=== PATIENT | male | born 1945 | race Caucasian/White ===

== ENCOUNTER 2020-11-14 01:12 | Outpatient (CLI) | payer MEDICARE, OTHER, SELFPAY ==
[2020-11-14 10:28] LABS: ALT 25 U/L (16-63); AST 20 U/L (15-37); Albumin 3.6 g/dL (3.4-5.0); Alkaline Phosphatase 76 U/L (46-116); Anion Gap 7.1 mmol/L (3-11); BUN 17 mg/dL (7-18); Bilirubin, Total 0.4 mg/dL (0.2-1.0); CO2 30.9 mmol/L (21.0-32.0); CREATININE 1.2 mg/dL (0.70-1.30); Calcium 8.5 mg/dL (8.5-10.1); Chloride 101 mmol/L (98-107); Estimated GFR 59.18 (mL/min/1.73m2); Glucose 249 mg/dL (74-106); Potassium 4.6 mmol/L (3.5-5.1); Sodium 139 mmol/L (136-145); Total Protein 7.2 g/dL (6.4-8.2)
--- NOTE | 2020-11-14 11:00 | DI.MRI_ITS ---
EXAM: MR BRAIN WO/W CLINICAL HISTORY: RUL LUNG CA,C34.11,STAGING EXAM TECHNIQUE: Multiplanar multisequence MRI of the brain was performed. Both noninfused and contrast i nfused sequences were performed. IV Contrast injected was 20 cc Dotarem. COMPARISON: No exams were available for comparison FINDINGS: CEREBRAL PARENCHYMA: No evidence of intracranial hemorrhage, mass effect nor shift of midline structu re. No extraaxial fluid collections. Ventricles are not enlarged nor shifted. There is no significant focal signal abnormality in the cerebellar hemispheres. Increased signal in both sides of the awilda is noted as well as multiple bilateral white matter signal foci in the Marisol and supraventricular white matter consistent with chronic small vessel disease. Th santana findings are nonenhancing and are not associated with surrounding edema and therefore doubtful fo r metastatic disease. There is slight asymmetry in the signal of the medial right temporal lobe amyg dala region evident on FLAIR sequence and mild enhancement at this level noted on the axial postcontr ast T1 weighted images. However, there is no evidence of ring enhancing lesions in this region on th e coronal images. No abnormal signal evident at this level on diffusion imaging There are no ring enhancing lesions in the brain. There is no abnormal meningeal enhancement. PITUITARY GLAND: No mass nor parasellar abnormality. No obvious abnormality in the cavernous sinuses. FLOW VOIDS: The expected flow void are noted. No evidence of obvious aneurysm nor obvious vascular ma lformation. PARANASAL SINUSES: There is post inflammatory retention cysts in the lateral wall of the left maxilla ry sinus measures 10 x 9 millimeters, not associated with a fluid level. Remainder of the paranasal sinuses are clear. ORBITS: No obvious abnormal findings. IMPRESSION: 1. There are multiple foci of white matter signal abnormality which are not associated with enhanceme nt nor surrounding edema noted therefore unlikely to represent metastatic disease. Probably chronic ischemic sequelae. 2. Slightly suspicious appearance of the medial right temporal lobe as described above. However, thi s is not supported in all 3 planes and may be related to slightly asymmetric enhancement of the plexu s within the temporal horn of the right lateral ventricle. Recommend repeat study in 3 months. DATA REPOSITORY:
[2020-11-14] MEDS: Gadoterate meglumine 20 ML VIAL IVP (11:03)
== END 2020-11-14 01:32 ==
PROVIDERS: Internal Medicine Medical Oncology; PCP Family Medicine; Visit Provider Radiology Radiation Oncology
DX: C34.11 Malignant neoplasm of upper lobe, right bronchus or lung (principal)
CPT/HCPCS: 70553; 80053

== ENCOUNTER 2020-11-21 09:23 | Outpatient (CLI) | payer MEDICARE, OTHER, SELFPAY ==
[2020-11-21 09:48] LABS: ALT 24 U/L (16-63); AST 22 U/L (15-37); Albumin 3.7 g/dL (3.4-5.0); Alkaline Phosphatase 76 U/L (46-116); Anion Gap 4.7 mmol/L (3-11); BUN 18 mg/dL (7-18); Bilirubin, Total 0.5 mg/dL (0.2-1.0); CO2 32.3 mmol/L (21.0-32.0); CREATININE 1.3 mg/dL (0.70-1.30); Chloride 101 mmol/L (98-107); Estimated GFR 53.96 (mL/min/1.73m2); Glucose 192 mg/dL (74-106); Potassium 5.5 mmol/L (3.5-5.1); Sodium 138 mmol/L (136-145); Total Protein 7.4 g/dL (6.4-8.2)
[2020-11-21 10:26] LABS: Abs Immature Grans 0.01 10^3/uL (0.0-0.06); Absolute Basophil Count 0.06 10^3/uL (0.0-0.2); Absolute Eosinophil Count 0.27 10^3/uL (0.0-0.7); Absolute Lymphocyte Count 0.94 10^3/uL (1.2-3.4); Absolute Neutrophil Count 4.99 10^3/uL (1.2-6.7); Basophils % 0.9; Eosinophils % 3.9; HCT 43.7 % (40.0-50.0); HGB 14.3 g/dL (13.5-17.5); Immature Grans % 0.1; Lymphocytes % 13.5; MCH 29.7 pg (27.0-33.0); MCHC 32.7 % (32.0-36.0); MCV 90.7 fL (80-95); Neutrophils % 71.6; Nucleated RBC 0 %; Platelet Count 210 10^3/uL (130-400); RBC 4.82 10^6/uL (4.36-5.78); RDW 12.5 % (11.8-14.1); RDW-SD 41.1 fL; WBC 6.97 10^3/uL (4.4-10.8)
[2020-11-21 10:39] LABS: Magnesium 1.9 mg/dL (1.8-2.4)
== END 2020-11-21 09:24 | disposition home or self-care (01) ==
LOC: LBO 09:24
PROVIDERS: PCP Family Medicine; Visit Provider Internal Medicine Medical Oncology
DX: C34.11 Malignant neoplasm of upper lobe, right bronchus or lung (principal)
CPT/HCPCS: 36415; 80053; 83735; 85025

== ENCOUNTER 2020-11-28 04:22 | Outpatient (CLI) | payer MEDICARE, OTHER, SELFPAY ==
[2020-11-28 09:04] LABS: Abs Immature Grans 0.05 10^3/uL (0.0-0.06); Absolute Basophil Count 0.04 10^3/uL (0.0-0.2); Absolute Eosinophil Count 0.18 10^3/uL (0.0-0.7); Absolute Lymphocyte Count 0.68 10^3/uL (1.2-3.4); Absolute Monocyte Count 0.52 10^3/uL (0.1-0.8); Absolute Neutrophil Count 5.16 10^3/uL (1.2-6.7); Basophils % 0.6; Eosinophils % 2.7; HCT 39.6 % (40.0-50.0); HGB 13.3 g/dL (13.5-17.5); Immature Grans % 0.8; Lymphocytes % 10.3; MCH 29.3 pg (27.0-33.0); MCHC 33.6 % (32.0-36.0); MCV 87.2 fL (80-95); MPV 9.7 fL (8.0-11.0); Monocytes % 7.8; Neutrophils % 77.8; Nucleated RBC 0 %; Platelet Count 199 10^3/uL (130-400); RBC 4.54 10^6/uL (4.36-5.78); RDW 12.3 % (11.8-14.1); RDW-SD 39.2 fL; WBC 6.63 10^3/uL (4.4-10.8)
[2020-11-28 09:19] LABS: ALT 19 U/L (16-63); AST 16 U/L (15-37); Albumin 3.4 g/dL (3.4-5.0); Alkaline Phosphatase 69 U/L (46-116); Anion Gap 7.6 mmol/L (3-11); BUN 24 mg/dL (7-18); Bilirubin, Total 0.6 mg/dL (0.2-1.0); CO2 28.4 mmol/L (21.0-32.0); CREATININE 1.5 mg/dL (0.70-1.30); Chloride 98 mmol/L (98-107); Estimated GFR 45.75 (mL/min/1.73m2); Glucose 272 mg/dL (74-106); Magnesium 1.5 mg/dL (1.8-2.4); Potassium 5.1 mmol/L (3.5-5.1); Sodium 134 mmol/L (136-145); Total Protein 7.4 g/dL (6.4-8.2)
== END 2020-11-28 04:23 | disposition home or self-care (01) ==
LOC: LBO 04:22
PROVIDERS: PCP Family Medicine; Visit Provider Internal Medicine Medical Oncology
DX: C34.11 Malignant neoplasm of upper lobe, right bronchus or lung (principal)
CPT/HCPCS: 36415; 80053; 83735; 85025

== ENCOUNTER 2020-12-05 04:32 | Outpatient (CLI) | payer MEDICARE, OTHER, SELFPAY ==
[2020-12-05 09:02] LABS: Abs Immature Grans 0.02 10^3/uL (0.0-0.06); Absolute Basophil Count 0.03 10^3/uL (0.0-0.2); Absolute Eosinophil Count 0.08 10^3/uL (0.0-0.7); Absolute Lymphocyte Count 0.33 10^3/uL (1.2-3.4); Absolute Monocyte Count 0.41 10^3/uL (0.1-0.8); Absolute Neutrophil Count 2.66 10^3/uL (1.2-6.7); Basophils % 0.8; Eosinophils % 2.3; HCT 38.1 % (40.0-50.0); HGB 12.6 g/dL (13.5-17.5); Immature Grans % 0.6; Lymphocytes % 9.3; MCH 29.4 pg (27.0-33.0); MCHC 33.1 % (32.0-36.0); MPV 9.3 fL (8.0-11.0); Monocytes % 11.6; Neutrophils % 75.4; Nucleated RBC 0 %; Platelet Count 217 10^3/uL (130-400); RBC 4.28 10^6/uL (4.36-5.78); RDW 12.2 % (11.8-14.1); RDW-SD 38.9 fL; WBC 3.53 10^3/uL (4.4-10.8)
[2020-12-05 09:17] LABS: ALT 20 U/L (16-63); AST 14 U/L (15-37); Albumin 3.1 g/dL (3.4-5.0); Alkaline Phosphatase 67 U/L (46-116); Anion Gap 4.8 mmol/L (3-11); BUN 22 mg/dL (7-18); Bilirubin, Total 0.3 mg/dL (0.2-1.0); CO2 29.2 mmol/L (21.0-32.0); CREATININE 1.4 mg/dL (0.70-1.30); Calcium 8.7 mg/dL (8.5-10.1); Chloride 103 mmol/L (98-107); Estimated GFR 49.54 (mL/min/1.73m2); Glucose 146 mg/dL (74-106); Magnesium 1.5 mg/dL (1.8-2.4); Potassium 4.8 mmol/L (3.5-5.1); Sodium 137 mmol/L (136-145)
== END 2020-12-05 04:33 | disposition home or self-care (01) ==
LOC: LBO 04:32
PROVIDERS: PCP Family Medicine; Visit Provider Internal Medicine Medical Oncology
DX: C34.11 Malignant neoplasm of upper lobe, right bronchus or lung (principal)
CPT/HCPCS: 36415; 80053; 83735; 85025

== ENCOUNTER 2020-12-12 04:07 | Outpatient (CLI) | payer MEDICARE, OTHER, SELFPAY ==
[2020-12-12 09:12] LABS: Abs Immature Grans 0.04 10^3/uL (0.0-0.06); Absolute Basophil Count 0.04 10^3/uL (0.0-0.2); Absolute Eosinophil Count 0.05 10^3/uL (0.0-0.7); Absolute Lymphocyte Count 0.28 10^3/uL (1.2-3.4); Absolute Neutrophil Count 3.27 10^3/uL (1.2-6.7); Eosinophils % 1.3; HCT 37.5 % (40.0-50.0); HGB 12.6 g/dL (13.5-17.5); MCH 29.4 pg (27.0-33.0); MCHC 33.6 % (32.0-36.0); MCV 87.6 fL (80-95); MPV 8.8 fL (8.0-11.0); Monocytes % 7.5; Neutrophils % 82.2; Nucleated RBC 0 %; Platelet Count 203 10^3/uL (130-400); RBC 4.28 10^6/uL (4.36-5.78); RDW 12.4 % (11.8-14.1); RDW-SD 39.5 fL; WBC 3.98 10^3/uL (4.4-10.8)
[2020-12-12 09:26] LABS: ALT 21 U/L (16-63); AST 16 U/L (15-37); Albumin 3.3 g/dL (3.4-5.0); Alkaline Phosphatase 69 U/L (46-116); BUN 26 mg/dL (7-18); Bilirubin, Total 0.3 mg/dL (0.2-1.0); CREATININE 1.3 mg/dL (0.70-1.30); Calcium 9.1 mg/dL (8.5-10.1); Chloride 103 mmol/L (98-107); Estimated GFR 53.96 (mL/min/1.73m2); Glucose 132 mg/dL (74-106); Magnesium 1.5 mg/dL (1.8-2.4); Potassium 4.8 mmol/L (3.5-5.1); Sodium 140 mmol/L (136-145); Total Protein 7.1 g/dL (6.4-8.2)
== END 2020-12-12 04:08 | disposition home or self-care (01) ==
LOC: LBO 04:07
PROVIDERS: PCP Family Medicine; Visit Provider Internal Medicine Medical Oncology
DX: C34.11 Malignant neoplasm of upper lobe, right bronchus or lung (principal)
CPT/HCPCS: 36415; 80053; 83735; 85025

== ENCOUNTER 2020-12-19 03:20 | Outpatient (CLI) | payer MEDICARE, OTHER, SELFPAY ==
[2020-12-19 09:47] LABS: Abs Immature Grans 0.03 10^3/uL (0.0-0.06); Absolute Basophil Count 0.03 10^3/uL (0.0-0.2); Absolute Eosinophil Count 0.04 10^3/uL (0.0-0.7); Absolute Lymphocyte Count 0.28 10^3/uL (1.2-3.4); Absolute Monocyte Count 0.25 10^3/uL (0.1-0.8); Absolute Neutrophil Count 2.09 10^3/uL (1.2-6.7); Basophils % 1.1; Eosinophils % 1.5; HCT 34.9 % (40.0-50.0); HGB 11.8 g/dL (13.5-17.5); Immature Grans % 1.1; Lymphocytes % 10.3; MCH 29.6 pg (27.0-33.0); MCHC 33.8 % (32.0-36.0); MCV 87.5 fL (80-95); MPV 9.1 fL (8.0-11.0); Monocytes % 9.2; Neutrophils % 76.8; Nucleated RBC 0 %; Platelet Count 147 10^3/uL (130-400); RBC 3.99 10^6/uL (4.36-5.78); RDW 12.5 % (11.8-14.1); RDW-SD 39.6 fL; WBC 2.72 10^3/uL (4.4-10.8)
[2020-12-19 10:04] LABS: ALT 23 U/L (16-63); AST 19 U/L (15-37); Albumin 3.2 g/dL (3.4-5.0); Alkaline Phosphatase 62 U/L (46-116); Anion Gap 6.1 mmol/L (3-11); BUN 20 mg/dL (7-18); Bilirubin, Total 0.4 mg/dL (0.2-1.0); CO2 27.9 mmol/L (21.0-32.0); CREATININE 1.2 mg/dL (0.70-1.30); Calcium 8.4 mg/dL (8.5-10.1); Chloride 106 mmol/L (98-107); Estimated GFR 59.18 (mL/min/1.73m2); Glucose 127 mg/dL (74-106); Magnesium 1.3 mg/dL (1.8-2.4); Potassium 4.6 mmol/L (3.5-5.1); Sodium 140 mmol/L (136-145); Total Protein 6.7 g/dL (6.4-8.2)
== END 2020-12-19 03:21 | disposition home or self-care (01) ==
LOC: LBO 03:20
PROVIDERS: PCP Family Medicine; Visit Provider Internal Medicine Medical Oncology
DX: C34.11 Malignant neoplasm of upper lobe, right bronchus or lung (principal)
CPT/HCPCS: 36415; 80053; 83735; 85025

== ENCOUNTER 2020-12-26 04:10 | Outpatient (CLI) | payer MEDICARE, OTHER, SELFPAY ==
[2020-12-26 09:51] LABS: Abs Immature Grans 0.05 10^3/uL (0.0-0.06); Absolute Basophil Count 0.01 10^3/uL (0.0-0.2); Absolute Lymphocyte Count 0.28 10^3/uL (1.2-3.4); Absolute Monocyte Count 0.43 10^3/uL (0.1-0.8); Absolute Neutrophil Count 3.65 10^3/uL (1.2-6.7); Basophils % 0.2; HGB 11.5 g/dL (13.5-17.5); Immature Grans % 1.1; Lymphocytes % 6.3; MCH 29.5 pg (27.0-33.0); MCHC 33.8 % (32.0-36.0); MCV 87.2 fL (80-95); Monocytes % 9.7; Neutrophils % 82.7; Nucleated RBC 0 %; Platelet Count 170 10^3/uL (130-400); RDW 12.8 % (11.8-14.1); RDW-SD 39.6 fL; WBC 4.42 10^3/uL (4.4-10.8)
[2020-12-26 10:01] LABS: ALT 26 U/L (16-63); AST 16 U/L (15-37); Albumin 3.5 g/dL (3.4-5.0); Alkaline Phosphatase 69 U/L (46-116); Anion Gap 7.3 mmol/L (3-11); BUN 36 mg/dL (7-18); Bilirubin, Total 0.5 mg/dL (0.2-1.0); CO2 28.7 mmol/L (21.0-32.0); CREATININE 1.3 mg/dL (0.70-1.30); Calcium 9.3 mg/dL (8.5-10.1); Chloride 102 mmol/L (98-107); Estimated GFR 53.96 (mL/min/1.73m2); Glucose 229 mg/dL (74-106); Magnesium 1.4 mg/dL (1.8-2.4); Potassium 5.5 mmol/L (3.5-5.1); Sodium 138 mmol/L (136-145)
== END 2020-12-26 04:11 | disposition home or self-care (01) ==
LOC: LBO 04:10
PROVIDERS: PCP Family Medicine; Visit Provider Internal Medicine Medical Oncology
DX: C34.11 Malignant neoplasm of upper lobe, right bronchus or lung (principal)
CPT/HCPCS: 36415; 80053; 83735; 85025

== ENCOUNTER 2021-01-02 02:35 | Outpatient (CLI) | payer MEDICARE, OTHER, SELFPAY ==
[2021-01-02 12:15] LABS: Abs Immature Grans 0.02 10^3/uL (0.0-0.06); Absolute Basophil Count 0.03 10^3/uL (0.0-0.2); Absolute Eosinophil Count 0.01 10^3/uL (0.0-0.7); Absolute Lymphocyte Count 0.24 10^3/uL (1.2-3.4); Absolute Monocyte Count 0.26 10^3/uL (0.1-0.8); Absolute Neutrophil Count 1.96 10^3/uL (1.2-6.7); Basophils % 1.2; Eosinophils % 0.4; HCT 33.2 % (40.0-50.0); HGB 11.1 g/dL (13.5-17.5); Immature Grans % 0.8; Lymphocytes % 9.5; MCH 29.7 pg (27.0-33.0); MCHC 33.4 % (32.0-36.0); MCV 88.8 fL (80-95); MPV 8.8 fL (8.0-11.0); Monocytes % 10.3; Neutrophils % 77.8; Nucleated RBC 0 %; Platelet Count 157 10^3/uL (130-400); RBC 3.74 10^6/uL (4.36-5.78); RDW 13.2 % (11.8-14.1); RDW-SD 41.3 fL; WBC 2.52 10^3/uL (4.4-10.8)
[2021-01-02 12:33] LABS: ALT 23 U/L (16-63); AST 19 U/L (15-37); Albumin 3.2 g/dL (3.4-5.0); Alkaline Phosphatase 74 U/L (46-116); Anion Gap 5.6 mmol/L (3-11); BUN 30 mg/dL (7-18); Bilirubin, Total 0.4 mg/dL (0.2-1.0); CO2 30.4 mmol/L (21.0-32.0); CREATININE 1.5 mg/dL (0.70-1.30); Calcium 8.6 mg/dL (8.5-10.1); Chloride 105 mmol/L (98-107); Estimated GFR 45.75 (mL/min/1.73m2); Glucose 154 mg/dL (74-106); Magnesium 1.4 mg/dL (1.8-2.4); Potassium 5.4 mmol/L (3.5-5.1); Sodium 141 mmol/L (136-145); Total Protein 6.6 g/dL (6.4-8.2)
== END 2021-01-02 02:36 | disposition home or self-care (01) ==
LOC: LBO 02:35
PROVIDERS: PCP Family Medicine; Visit Provider Internal Medicine Medical Oncology
DX: C34.11 Malignant neoplasm of upper lobe, right bronchus or lung (principal)
CPT/HCPCS: 36415; 80053; 83735; 85025

== ENCOUNTER 2021-01-09 02:08 | Outpatient (CLI) | payer MEDICARE, OTHER, SELFPAY ==
--- NOTE | 2021-01-09 14:16 | DI.CT_ITS ---
Exam(s) CT CHEST W EXAM: CT CHEST W CLINICAL HISTORY: RUL LUNG CA,C34.11,S/P CHEMO AND RADIATION,RESTAGING EXAM. TECHNIQUE: Multi planar reconstructions were performed. CONTRAST MATERIAL: Omnipaque 350; 70 cc COMPARISON: No prior exams were available for comparison FINDINGS: CHEST: LUNGS: There is a cavitated density in the right upper lobe suprahilar region which measures approxim ately 2.5 x 1.8 x 1.6 cm. Does not contain fluid level. Mild benign-appearing increased markings seen medially in the right lower lobe. There are no other f ocal right lung findings. No focal left lung findings. No pleural effusions. No significant focal findings in the trachea and mainstem bronchi. MEDIASTINUM: There is no hilar nor mediastinal adenopathy. No subcarinal adenopathy. Right thyroid l obe is small but the isthmus and the left thyroid lobe are grossly enlarged and extend down into the mediastinum to the aortic arch level at the level of the innominate vein and deviates the trachea sli ghtly towards the right side. This grossly enlarged abnormal appearing heterogeneous left thyroid lo be exhibits sharp borders relative to the surrounding mediastinum fat. CARDIAC: Heart size is normal. There is no pericardial effusion.Coronary artery calcification noted in the LAD. Caliber of the thoracic aorta is within normal limits. No dissection evident. VISUALIZED UPPER ABDOMEN:There are no significant adrenal masses. OSSEOUS: No significant osseous lesions.. IMPRESSION: 1. Cavitated right upper lobe density measuring approximately 2.5 x 1.8 x 1.6 cm in the right suprahi lar region, as described above. No other pulmonary findings nor pleural effusions. No obvious lymph adenopathy. 2. Grossly enlarged and abnormal appearing isthmus and left thyroid lobe which the extend down into t he mediastinum to the level of the innominate vein. The approximate measurements are 4 cm AP by 3 cm wide by 7 cm cephalocaudal for the abnormal grossly enlarged left thyroid lobe. The opposite-right thyroid lobe is tiny. 3. No lytic osseous lesions identified RADIATION DOSE DELIVERED: 575.1mGy.cm Total DLP DATA REPOSITORY: All CT scans at this facility are submitted to the National Radiology Data Registry (NRDR) Dose Index Registry (DIR) with the [employer] ([employer]). RADIATION OPTIMIZATION: All CT scans at this facility use at least one of these dose optimization te chniques: automated exposure control; mA and/or kV adjustment per patient size (includes targeted exa ms where dose is matched to clinical indication); or iterative reconstruction.
[2021-01-09] MEDS: Omnipaque 350 MG/ML 100 ML BTL 70 ML IV (14:22)
== END 2021-01-09 02:28 ==
PROVIDERS: PCP Family Medicine; Visit Provider Internal Medicine Medical Oncology
DX: C34.11 Malignant neoplasm of upper lobe, right bronchus or lung (principal); Z92.21 Personal history of antineoplastic chemotherapy; Z92.3 Personal history of irradiation; Z12.89 Encounter for screening for malignant neoplasm of other sites; E07.89 Other specified disorders of thyroid
CPT/HCPCS: 71260; J3490

== ENCOUNTER 2021-01-23 02:14 | Outpatient (CLI) | payer MEDICARE, OTHER, SELFPAY ==
[2021-01-23 09:51] LABS: Abs Immature Grans 0.02 10^3/uL (0.0-0.06); Absolute Basophil Count 0.04 10^3/uL (0.0-0.2); Absolute Eosinophil Count 0.15 10^3/uL (0.0-0.7); Absolute Lymphocyte Count 0.35 10^3/uL (1.2-3.4); Absolute Monocyte Count 0.82 10^3/uL (0.1-0.8); Absolute Neutrophil Count 3.73 10^3/uL (1.2-6.7); Basophils % 0.8; Eosinophils % 2.9; HCT 31.1 % (40.0-50.0); HGB 10.2 g/dL (13.5-17.5); Immature Grans % 0.4; Lymphocytes % 6.8; MCH 29.7 pg (27.0-33.0); MCHC 32.8 % (32.0-36.0); MCV 90.4 fL (80-95); Neutrophils % 73.1; Nucleated RBC 0 %; Platelet Count 191 10^3/uL (130-400); RBC 3.44 10^6/uL (4.36-5.78); RDW 15.9 % (11.8-14.1); RDW-SD 51.6 fL; WBC 5.11 10^3/uL (4.4-10.8)
[2021-01-23 10:08] LABS: ALT 20 U/L (16-63); AST 20 U/L (15-37); Alkaline Phosphatase 67 U/L (46-116); Anion Gap 8.7 mmol/L (3-11); BUN 20 mg/dL (7-18); Bilirubin, Total 0.4 mg/dL (0.2-1.0); CO2 27.3 mmol/L (21.0-32.0); CREATININE 1.3 mg/dL (0.70-1.30); Calcium 8.6 mg/dL (8.5-10.1); Chloride 103 mmol/L (98-107); Estimated GFR 53.96 (mL/min/1.73m2); FREE T4 1.26 ng/dL (0.76-1.46); Glucose 183 mg/dL (74-106); Magnesium 1.4 mg/dL (1.8-2.4); Potassium 4.5 mmol/L (3.5-5.1); Sodium 139 mmol/L (136-145); TSH 0.11 uIU/mL (0.36-3.74)
== END 2021-01-23 02:15 | disposition home or self-care (01) ==
LOC: LBO 02:14
PROVIDERS: PCP Family Medicine; Visit Provider Internal Medicine Medical Oncology
DX: C34.11 Malignant neoplasm of upper lobe, right bronchus or lung (principal); Z79.899 Other long term (current) drug therapy
CPT/HCPCS: 36415; 80053; 83735; 84439; 84443; 85025

== ENCOUNTER 2021-02-20 03:17 | Outpatient (CLI) | payer MEDICARE, OTHER, SELFPAY ==
[2021-02-20 13:52] LABS: Abs Immature Grans 0.05 10^3/uL (0.0-0.06); Absolute Basophil Count 0.01 10^3/uL (0.0-0.2); Absolute Lymphocyte Count 0.11 10^3/uL (1.2-3.4); Absolute Monocyte Count 0.12 10^3/uL (0.1-0.8); Absolute Neutrophil Count 10.02 10^3/uL (1.2-6.7); Basophils % 0.1; HCT 34.1 % (40.0-50.0); HGB 11.2 g/dL (13.5-17.5); Immature Grans % 0.5; Lymphocytes % 1.1; MCH 30.4 pg (27.0-33.0); MCHC 32.8 % (32.0-36.0); MCV 92.4 fL (80-95); MPV 9.6 fL (8.0-11.0); Monocytes % 1.2; Neutrophils % 97.1; Nucleated RBC 0 %; Platelet Count 151 10^3/uL (130-400); RBC 3.69 10^6/uL (4.36-5.78); RDW 17.5 % (11.8-14.1); WBC 10.31 10^3/uL (4.4-10.8)
[2021-02-20 14:23] LABS: ALT 29 U/L (16-63); AST 15 U/L (15-37); Albumin 3.3 g/dL (3.4-5.0); Alkaline Phosphatase 97 U/L (46-116); Anion Gap 10.4 mmol/L (3-11); BUN 52 mg/dL (7-18); Bilirubin, Total 0.5 mg/dL (0.2-1.0); CO2 23.6 mmol/L (21.0-32.0); CREATININE 1.8 mg/dL (0.70-1.30); Calcium 8.6 mg/dL (8.5-10.1); Chloride 100 mmol/L (98-107); Estimated GFR 37.07 (mL/min/1.73m2); FREE T4 0.98 ng/dL (0.76-1.46); Glucose 327 mg/dL (74-106); Magnesium 1.7 mg/dL (1.8-2.4); Potassium 5.5 mmol/L (3.5-5.1); Sodium 134 mmol/L (136-145); TSH 0.07 uIU/mL (0.36-3.74); Total Protein 6.6 g/dL (6.4-8.2)
== END 2021-02-20 03:18 | disposition home or self-care (01) ==
LOC: LBO 03:17
PROVIDERS: PCP Family Medicine; Visit Provider Internal Medicine Medical Oncology
DX: C34.11 Malignant neoplasm of upper lobe, right bronchus or lung (principal); Z79.899 Other long term (current) drug therapy
CPT/HCPCS: 36415; 80053; 83735; 84439; 84443; 85025

== ENCOUNTER 2021-03-13 03:16 | Outpatient (CLI) | payer MEDICARE, OTHER, SELFPAY ==
[2021-03-13 10:09] LABS: Abs Immature Grans 0.06 10^3/uL (0.0-0.06); Absolute Basophil Count 0.01 10^3/uL (0.0-0.2); Absolute Eosinophil Count 0.02 10^3/uL (0.0-0.7); Absolute Lymphocyte Count 0.32 10^3/uL (1.2-3.4); Absolute Neutrophil Count 6.34 10^3/uL (1.2-6.7); Basophils % 0.1; Eosinophils % 0.3; HCT 35.6 % (40.0-50.0); HGB 11.4 g/dL (13.5-17.5); Immature Grans % 0.8; Lymphocytes % 4.3; MCH 30.6 pg (27.0-33.0); MCV 95.7 fL (80-95); MPV 9.4 fL (8.0-11.0); Monocytes % 9.4; Neutrophils % 85.1; Nucleated RBC 0 %; Platelet Count 158 10^3/uL (130-400); RBC 3.72 10^6/uL (4.36-5.78); RDW 17.1 % (11.8-14.1); RDW-SD 59.2 fL; WBC 7.45 10^3/uL (4.4-10.8)
[2021-03-13 10:31] LABS: ALT 34 U/L (16-63); AST 21 U/L (15-37); Albumin 3.3 g/dL (3.4-5.0); Alkaline Phosphatase 70 U/L (46-116); Anion Gap 7.7 mmol/L (3-11); BUN 30 mg/dL (7-18); Bilirubin, Total 0.5 mg/dL (0.2-1.0); CO2 28.3 mmol/L (21.0-32.0); CREATININE 1.5 mg/dL (0.70-1.30); Calcium 8.9 mg/dL (8.5-10.1); Chloride 105 mmol/L (98-107); Estimated GFR 45.75 (mL/min/1.73m2); FREE T4 0.83 ng/dL (0.76-1.46); Glucose 95 mg/dL (74-106); Magnesium 1.3 mg/dL (1.8-2.4); Sodium 141 mmol/L (136-145); TSH 1.03 uIU/mL (0.36-3.74); Total Protein 6.1 g/dL (6.4-8.2)
== END 2021-03-13 03:17 | disposition home or self-care (01) ==
LOC: LBO 03:16
PROVIDERS: PCP Family Medicine; Visit Provider Internal Medicine Medical Oncology
DX: C34.11 Malignant neoplasm of upper lobe, right bronchus or lung (principal); Z79.899 Other long term (current) drug therapy
CPT/HCPCS: 36415; 80053; 83735; 84439; 84443; 85025

== ENCOUNTER 2021-03-27 02:09 | Outpatient (CLI) | payer MEDICARE, OTHER, SELFPAY ==
[2021-03-27 13:48] LABS: Abs Immature Grans 0.06 10^3/uL (0.0-0.06); Absolute Basophil Count 0.03 10^3/uL (0.0-0.2); Absolute Eosinophil Count 0.02 10^3/uL (0.0-0.7); Absolute Lymphocyte Count 0.23 10^3/uL (1.2-3.4); Absolute Monocyte Count 0.65 10^3/uL (0.1-0.8); Absolute Neutrophil Count 5.23 10^3/uL (1.2-6.7); Basophils % 0.5; Eosinophils % 0.3; HCT 34.4 % (40.0-50.0); HGB 11.2 g/dL (13.5-17.5); Lymphocytes % 3.7; MCH 30.4 pg (27.0-33.0); MCHC 32.6 % (32.0-36.0); MCV 93.2 fL (80-95); Monocytes % 10.5; Nucleated RBC 0 %; Platelet Count 176 10^3/uL (130-400); RBC 3.69 10^6/uL (4.36-5.78); RDW 15.4 % (11.8-14.1); RDW-SD 52.7 fL; WBC 6.22 10^3/uL (4.4-10.8)
[2021-03-27 14:08] LABS: ALT 27 U/L (16-63); AST 19 U/L (15-37); Albumin 3.2 g/dL (3.4-5.0); Alkaline Phosphatase 72 U/L (46-116); Anion Gap 10.6 mmol/L (3-11); BUN 16 mg/dL (7-18); Bilirubin, Total 0.3 mg/dL (0.2-1.0); CO2 24.4 mmol/L (21.0-32.0); CREATININE 1.1 mg/dL (0.70-1.30); Calcium 8.5 mg/dL (8.5-10.1); Chloride 102 mmol/L (98-107); FREE T4 1.03 ng/dL (0.76-1.46); Glucose 241 mg/dL (74-106); Magnesium 1.1 mg/dL (1.8-2.4); Potassium 4.6 mmol/L (3.5-5.1); Sodium 137 mmol/L (136-145); TSH 0.54 uIU/mL (0.36-3.74); Total Protein 6.6 g/dL (6.4-8.2)
== END 2021-03-27 02:10 | disposition home or self-care (01) ==
LOC: LBO 02:09
PROVIDERS: PCP Family Medicine; Visit Provider Internal Medicine Medical Oncology
DX: C34.11 Malignant neoplasm of upper lobe, right bronchus or lung (principal); Z79.899 Other long term (current) drug therapy
CPT/HCPCS: 36415; 80053; 83735; 84439; 84443; 85025

== ENCOUNTER 2025-01-11 04:44 | Outpatient (CLI) | payer MEDICARE, SELFPAY ==
[2025-01-11 09:18] LABS: Abs Immature Grans 0.02 10^3/uL (0.0-0.06); Absolute Basophil Count 0.06 10^3/uL (0.0-0.2); Absolute Monocyte Count 0.64 10^3/uL (0.1-0.8); Absolute Neutrophil Count 6.13 10^3/uL (1.2-6.7); Basophils % 0.8 %; Eosinophils % 1.3 %; HCT 40.9 % (40.0-50.0); HGB 13.5 g/dL (13.5-17.5); Immature Grans % 0.3 %; Lymphocytes % 6.7 %; MCH 27.8 pg (27.0-33.0); MCV 84 fL (80-95); MPV 8.9 fL (8.0-11.0); Monocytes % 8.6 %; Neutrophils % 82.3 %; Platelet Count 232 10^3/uL (130-400); RBC 4.86 10^6/uL (4.36-5.78); RDW 13.1 % (11.8-14.1); RDW-SD 39.8 fL; WBC 7.45 10^3/uL (4.4-10.8)
[2025-01-11 09:46] LABS: ALT 21 U/L (16-63); AST 15 U/L (15-37); Albumin 3.4 g/dL (3.4-5.0); Alkaline Phosphatase 103 U/L (46-116); Anion Gap 6.3 mmol/L (3-11); BUN 26 mg/dL (7-18); Bilirubin, Total 0.5 mg/dL (0.2-1.0); CO2 27.7 mmol/L (21.0-32.0); CREATININE 1.3 mg/dL (0.70-1.30); Calcium 9.2 mg/dL (8.5-10.1); Chloride 104 mmol/L (98-107); Estimated GFR 56.23 (mL/min/1.73m2); FREE T4 1.02 ng/dL (0.76-1.46); Glucose 179 mg/dL (74-106); Magnesium 1.7 mg/dL (1.8-2.4); Potassium 4.1 mmol/L (3.5-5.1); Sodium 138 mmol/L (136-145); Total Protein 7.2 g/dL (6.4-8.2)
== END 2025-01-11 04:45 | disposition home or self-care (01) ==
LOC: LBO 04:45
PROVIDERS: PCP Family Medicine; Visit Provider Nurse Practitioner Family
DX: Z79.899 Other long term (current) drug therapy (principal); C34.11 Malignant neoplasm of upper lobe, right bronchus or lung
CPT/HCPCS: 36415; 80053; 83735; 84439; 84443; 85025

== ENCOUNTER 2025-01-18 04:00 | Outpatient (CLI) | payer MEDICARE, SELFPAY ==
[2025-01-18 11:18] LABS: Abs Immature Grans 0.06 10^3/uL (0.0-0.06); Absolute Basophil Count 0.05 10^3/uL (0.0-0.2); Absolute Eosinophil Count 0.11 10^3/uL (0.0-0.7); Absolute Lymphocyte Count 0.91 10^3/uL (1.2-3.4); Absolute Monocyte Count 0.38 10^3/uL (0.1-0.8); Absolute Neutrophil Count 5.34 10^3/uL (1.2-6.7); Basophils % 0.7 %; Eosinophils % 1.6 %; HCT 40.3 % (40.0-50.0); Immature Grans % 0.9 %; Lymphocytes % 13.3 %; MCH 27.7 pg (27.0-33.0); MCHC 32.3 % (32.0-36.0); MCV 86 fL (80-95); MPV 9.2 fL (8.0-11.0); Monocytes % 5.5 %; Platelet Count 198 10^3/uL (130-400); RDW 12.9 % (11.8-14.1); WBC 6.85 10^3/uL (4.4-10.8)
[2025-01-18 11:43] LABS: ALT 20 U/L (16-63); AST 14 U/L (15-37); Albumin 3.2 g/dL (3.4-5.0); Alkaline Phosphatase 102 U/L (46-116); BUN 24 mg/dL (7-18); Bilirubin, Total 0.5 mg/dL (0.2-1.0); CREATININE 1.2 mg/dL (0.70-1.30); Calcium 8.8 mg/dL (8.5-10.1); Chloride 104 mmol/L (98-107); FREE T4 1.03 ng/dL (0.76-1.46); Glucose 134 mg/dL (74-106); Magnesium 1.5 mg/dL (1.8-2.4); Potassium 4.8 mmol/L (3.5-5.1); Sodium 140 mmol/L (136-145); TSH 1.37 uIU/mL (0.36-3.74); Total Protein 6.7 g/dL (6.4-8.2)
== END 2025-01-18 04:01 | disposition home or self-care (01) ==
PROVIDERS: PCP Family Medicine; Visit Provider Nurse Practitioner Family
DX: Z79.899 Other long term (current) drug therapy (principal); C34.11 Malignant neoplasm of upper lobe, right bronchus or lung
CPT/HCPCS: 36415; 80053; 83735; 84439; 84443; 85025

== ENCOUNTER 2025-02-02 02:08 | Outpatient (CLI) | payer MEDICARE, SELFPAY ==
[2025-02-02 09:23] LABS: Abs Immature Grans 0.04 10^3/uL (0.0-0.06); Absolute Basophil Count 0.07 10^3/uL (0.0-0.2); Absolute Eosinophil Count 0.05 10^3/uL (0.0-0.7); Absolute Lymphocyte Count 0.59 10^3/uL (1.2-3.4); Absolute Monocyte Count 1.03 10^3/uL (0.1-0.8); Absolute Neutrophil Count 5.64 10^3/uL (1.2-6.7); Basophils % 0.9 %; Eosinophils % 0.7 %; HCT 40.2 % (40.0-50.0); Immature Grans % 0.5 %; MCHC 32.3 % (32.0-36.0); MCV 87 fL (80-95); MPV 8.8 fL (8.0-11.0); Monocytes % 13.9 %; Platelet Count 161 10^3/uL (130-400); RBC 4.65 10^6/uL (4.36-5.78); RDW 14.2 % (11.8-14.1); RDW-SD 43.8 fL; WBC 7.42 10^3/uL (4.4-10.8)
[2025-02-02 09:53] LABS: ALT 19 U/L (16-63); AST 13 U/L (15-37); Albumin 3.3 g/dL (3.4-5.0); Alkaline Phosphatase 93 U/L (46-116); Anion Gap 8.5 mmol/L (3-11); BUN 24 mg/dL (7-18); Bilirubin, Total 0.4 mg/dL (0.2-1.0); CO2 29.5 mmol/L (21.0-32.0); CREATININE 1.2 mg/dL (0.70-1.30); Calcium 8.8 mg/dL (8.5-10.1); Chloride 100 mmol/L (98-107); FREE T4 0.99 ng/dL (0.76-1.46); Glucose 242 mg/dL (74-106); Magnesium 1.7 mg/dL (1.8-2.4); Potassium 4.8 mmol/L (3.5-5.1); Sodium 138 mmol/L (136-145); TSH 0.86 uIU/mL (0.36-3.74); Total Protein 6.9 g/dL (6.4-8.2)
== END 2025-02-02 02:09 | disposition home or self-care (01) ==
LOC: LBO 02:08
PROVIDERS: PCP Family Medicine; Visit Provider Nurse Practitioner Family
DX: Z79.899 Other long term (current) drug therapy (principal); C34.11 Malignant neoplasm of upper lobe, right bronchus or lung
CPT/HCPCS: 36415; 80053; 83735; 84439; 84443; 85025

== ENCOUNTER 2025-02-09 09:37 | Outpatient (CLI) | payer MEDICARE, SELFPAY ==
[2025-02-09 09:47] LABS: Abs Immature Grans 0.08 10^3/uL (0.0-0.06); Absolute Basophil Count 0.04 10^3/uL (0.0-0.2); Absolute Eosinophil Count 0.02 10^3/uL (0.0-0.7); Absolute Lymphocyte Count 1.11 10^3/uL (1.2-3.4); Absolute Monocyte Count 0.56 10^3/uL (0.1-0.8); Absolute Neutrophil Count 7.01 10^3/uL (1.2-6.7); Basophils % 0.5 %; Eosinophils % 0.2 %; HCT 41.1 % (40.0-50.0); HGB 13.4 g/dL (13.5-17.5); Immature Grans % 0.9 %; Lymphocytes % 12.6 %; MCH 27.3 pg (27.0-33.0); MCHC 32.6 % (32.0-36.0); MCV 84 fL (80-95); MPV 9.9 fL (8.0-11.0); Monocytes % 6.3 %; Neutrophils % 79.5 %; Platelet Count 189 10^3/uL (130-400); RBC 4.91 10^6/uL (4.36-5.78); RDW 13.8 % (11.8-14.1); RDW-SD 41.8 fL; WBC 8.82 10^3/uL (4.4-10.8)
[2025-02-09 10:11] LABS: ALT 29 U/L (16-63); AST 15 U/L (15-37); Albumin 3.3 g/dL (3.4-5.0); Alkaline Phosphatase 94 U/L (46-116); Anion Gap 8.7 mmol/L (3-11); BUN 30 mg/dL (7-18); Bilirubin, Total 0.8 mg/dL (0.2-1.0); CO2 28.3 mmol/L (21.0-32.0); CREATININE 1.2 mg/dL (0.70-1.30); Calcium 9.3 mg/dL (8.5-10.1); Chloride 102 mmol/L (98-107); FREE T4 1.16 ng/dL (0.76-1.46); Glucose 220 mg/dL (74-106); Magnesium 1.3 mg/dL (1.8-2.4); Potassium 4.5 mmol/L (3.5-5.1); Sodium 139 mmol/L (136-145); Total Protein 7.2 g/dL (6.4-8.2)
== END 2025-02-09 09:38 | disposition home or self-care (01) ==
LOC: LBO 09:45
PROVIDERS: PCP Family Medicine; Visit Provider Nurse Practitioner Family
DX: Z79.899 Other long term (current) drug therapy (principal); C34.11 Malignant neoplasm of upper lobe, right bronchus or lung
CPT/HCPCS: 36415; 80053; 83735; 84439; 84443; 85025

== ENCOUNTER 2025-02-22 03:08 | Outpatient (CLI) | payer MEDICARE, SELFPAY ==
[2025-02-22 10:16] LABS: Abs Immature Grans 0.05 10^3/uL (0.0-0.06); Absolute Basophil Count 0.04 10^3/uL (0.0-0.2); Absolute Eosinophil Count 0.02 10^3/uL (0.0-0.7); Absolute Lymphocyte Count 0.91 10^3/uL (1.2-3.4); Absolute Monocyte Count 0.84 10^3/uL (0.1-0.8); Absolute Neutrophil Count 4.71 10^3/uL (1.2-6.7); Basophils % 0.6 %; Eosinophils % 0.3 %; HCT 36.1 % (40.0-50.0); HGB 11.3 g/dL (13.5-17.5); Immature Grans % 0.8 %; Lymphocytes % 13.9 %; MCH 26.7 pg (27.0-33.0); MCHC 31.3 % (32.0-36.0); MCV 85 fL (80-95); MPV 8.6 fL (8.0-11.0); Monocytes % 12.8 %; Neutrophils % 71.6 %; Platelet Count 250 10^3/uL (130-400); RBC 4.24 10^6/uL (4.36-5.78); RDW 14.2 % (11.8-14.1); RDW-SD 43.5 fL; WBC 6.57 10^3/uL (4.4-10.8)
[2025-02-22 10:46] LABS: ALT 92 U/L (16-63); AST 42 U/L (15-37); Albumin 2.6 g/dL (3.4-5.0); Alkaline Phosphatase 87 U/L (46-116); Anion Gap 9.4 mmol/L (3-11); BUN 13 mg/dL (7-18); Bilirubin, Total 0.5 mg/dL (0.2-1.0); CO2 26.6 mmol/L (21.0-32.0); Calcium 8.8 mg/dL (8.5-10.1); Chloride 102 mmol/L (98-107); Estimated GFR 77.04 (mL/min/1.73m2); FREE T4 1.31 ng/dL (0.76-1.46); Glucose 190 mg/dL (74-106); Magnesium 1.3 mg/dL (1.8-2.4); Potassium 4.3 mmol/L (3.5-5.1); Sodium 138 mmol/L (136-145); TSH 0.56 uIU/mL (0.36-3.74); Total Protein 6.8 g/dL (6.4-8.2)
== END 2025-02-22 03:09 | disposition home or self-care (01) ==
PROVIDERS: PCP Family Medicine; Visit Provider Nurse Practitioner Family
DX: Z79.899 Other long term (current) drug therapy (principal); C34.11 Malignant neoplasm of upper lobe, right bronchus or lung
CPT/HCPCS: 80053; 83735; 84439; 84443; 85025

== ENCOUNTER 2025-03-16 09:06 | Outpatient (CLI) | payer MEDICARE, SELFPAY ==
[2025-03-16 09:25] LABS: Abs Immature Grans 0.04 10^3/uL (0.0-0.06); HCT 34.5 % (40.0-50.0); HGB 11.0 g/dL (13.5-17.5); Immature Grans % 0.5 %; MCH 26.9 pg (27.0-33.0); MCHC 31.9 % (32.0-36.0); MCV 84 fL (80-95); MPV 8.8 fL (8.0-11.0); Platelet Count 180 10^3/uL (130-400); RBC 4.09 10^6/uL (4.36-5.78); RDW 15.6 % (11.8-14.1); RDW-SD 47.0 fL; WBC 7.77 10^3/uL (4.4-10.8)
[2025-03-16 10:01] LABS: ALT 27 U/L (16-63); AST 20 U/L (15-37); Albumin 3.0 g/dL (3.4-5.0); Alkaline Phosphatase 92 U/L (46-116); Anion Gap 7.2 mmol/L (3-11); BUN 17 mg/dL (7-18); Bilirubin, Total 0.5 mg/dL (0.2-1.0); CO2 27.8 mmol/L (21.0-32.0); Calcium 8.8 mg/dL (8.5-10.1); Chloride 101 mmol/L (98-107); Estimated GFR 87.42 (mL/min/1.73m2); Glucose 203 mg/dL (74-106); Magnesium 1.4 mg/dL (1.8-2.4); Potassium 4.8 mmol/L (3.5-5.1); Sodium 136 mmol/L (136-145); TSH 0.58 uIU/mL (0.36-3.74); Total Protein 7.2 g/dL (6.4-8.2)
== END 2025-03-16 09:07 | disposition home or self-care (01) ==
LOC: LBO 09:09
PROVIDERS: PCP Family Medicine; Visit Provider Nurse Practitioner Family
DX: Z79.899 Other long term (current) drug therapy (principal); C34.11 Malignant neoplasm of upper lobe, right bronchus or lung
CPT/HCPCS: 36415; 80053; 83735; 84439; 84443; 85025

== ENCOUNTER 2025-04-05 03:01 | Outpatient (CLI) | payer MEDICARE, SELFPAY ==
[2025-04-05 14:00] LABS: Abs Immature Grans 0.05 10^3/uL (0.0-0.06); HCT 30.9 % (40.0-50.0); HGB 9.9 g/dL (13.5-17.5); Immature Grans % 0.6 %; MCH 27.2 pg (27.0-33.0); MCHC 32.0 % (32.0-36.0); MCV 85 fL (80-95); MPV 8.3 fL (8.0-11.0); Platelet Count 278 10^3/uL (130-400); RBC 3.64 10^6/uL (4.36-5.78); RDW 15.9 % (11.8-14.1); RDW-SD 48.4 fL; WBC 8.41 10^3/uL (4.4-10.8)
[2025-04-05 14:32] LABS: ALT 93 U/L (16-63); AST 32 U/L (15-37); Albumin 2.8 g/dL (3.4-5.0); Alkaline Phosphatase 91 U/L (46-116); Anion Gap 5.1 mmol/L (3-11); BUN 17 mg/dL (7-18); Bilirubin, Total 0.3 mg/dL (0.2-1.0); CO2 29.9 mmol/L (21.0-32.0); Calcium 9.1 mg/dL (8.5-10.1); Chloride 101 mmol/L (98-107); Estimated GFR 68.29 (mL/min/1.73m2); Glucose 217 mg/dL (74-106); Magnesium 1.4 mg/dL (1.8-2.4); Potassium 5.2 mmol/L (3.5-5.1); Sodium 136 mmol/L (136-145); TSH 0.72 uIU/mL (0.36-3.74); Total Protein 7.0 g/dL (6.4-8.2)
== END 2025-04-05 03:02 | disposition home or self-care (01) ==
LOC: LBO 03:01
PROVIDERS: PCP Family Medicine; Visit Provider Nurse Practitioner Family
DX: Z79.899 Other long term (current) drug therapy (principal)
CPT/HCPCS: 36415; 80053; 83735; 84439; 84443; 85025

== ENCOUNTER 2025-04-26 04:39 | Outpatient (CLI) | payer MEDICARE, SELFPAY ==
[2025-04-26 13:10] LABS: Abs Immature Grans 0.05 10^3/uL (0.0-0.06); HCT 33.7 % (40.0-50.0); HGB 10.5 g/dL (13.5-17.5); Immature Grans % 0.6 %; MCH 26.8 pg (27.0-33.0); MCHC 31.2 % (32.0-36.0); MCV 86 fL (80-95); MPV 8.6 fL (8.0-11.0); Platelet Count 255 10^3/uL (130-400); RBC 3.92 10^6/uL (4.36-5.78); RDW 17.5 % (11.8-14.1); RDW-SD 54.9 fL; WBC 9.05 10^3/uL (4.4-10.8)
[2025-04-26 13:36] LABS: ALT 21 U/L (16-63); AST 18 U/L (15-37); Albumin 3.3 g/dL (3.4-5.0); Alkaline Phosphatase 86 U/L (46-116); Anion Gap 7.2 mmol/L (3-11); BUN 27 mg/dL (7-18); Bilirubin, Total 0.5 mg/dL (0.2-1.0); CO2 28.8 mmol/L (21.0-32.0); Calcium 9.2 mg/dL (8.5-10.1); Chloride 100 mmol/L (98-107); Estimated GFR 68.29 (mL/min/1.73m2); Glucose 115 mg/dL (74-106); Magnesium 1.7 mg/dL (1.8-2.4); Potassium 4.6 mmol/L (3.5-5.1); Sodium 136 mmol/L (136-145); TSH 1.03 uIU/mL (0.36-3.74); Total Protein 7.5 g/dL (6.4-8.2)
== END 2025-04-26 04:40 | disposition home or self-care (01) ==
LOC: LBO 04:39
PROVIDERS: PCP Family Medicine; Visit Provider Nurse Practitioner Family
DX: Z79.899 Other long term (current) drug therapy (principal); C34.11 Malignant neoplasm of upper lobe, right bronchus or lung
CPT/HCPCS: 36415; 80053; 83735; 84439; 84443; 85025

== ENCOUNTER 2025-05-17 01:45 | Outpatient (CLI) | payer MEDICARE, SELFPAY ==
[2025-05-17 13:09] LABS: Abs Immature Grans 0.02 10^3/uL (0.0-0.06); HCT 34.4 % (40.0-50.0); HGB 11.0 g/dL (13.5-17.5); Immature Grans % 0.3 %; MCH 27.5 pg (27.0-33.0); MCHC 32.0 % (32.0-36.0); MCV 86 fL (80-95); MPV 8.7 fL (8.0-11.0); Platelet Count 155 10^3/uL (130-400); RBC 4.00 10^6/uL (4.36-5.78); RDW 16.3 % (11.8-14.1); RDW-SD 51.4 fL; WBC 5.84 10^3/uL (4.4-10.8)
[2025-05-17 13:34] LABS: ALT 24 U/L (16-63); AST 19 U/L (15-37); Albumin 3.4 g/dL (3.4-5.0); Alkaline Phosphatase 101 U/L (46-116); Anion Gap 6.2 mmol/L (3-11); BUN 17 mg/dL (7-18); Bilirubin, Total 0.5 mg/dL (0.2-1.0); CO2 27.8 mmol/L (21.0-32.0); Calcium 9.0 mg/dL (8.5-10.1); Chloride 102 mmol/L (98-107); Estimated GFR 68.29 (mL/min/1.73m2); Glucose 189 mg/dL (74-106); Magnesium 1.4 mg/dL (1.8-2.4); Potassium 4.5 mmol/L (3.5-5.1); Sodium 136 mmol/L (136-145); TSH 1.09 uIU/mL (0.36-3.74); Total Protein 7.0 g/dL (6.4-8.2)
== END 2025-05-17 01:46 | disposition home or self-care (01) ==
LOC: LBO 01:45
PROVIDERS: PCP Family Medicine; Visit Provider Nurse Practitioner Family
DX: Z79.899 Other long term (current) drug therapy (principal)
CPT/HCPCS: 36415; 80053; 83735; 84439; 84443; 85025

== ENCOUNTER 2025-06-07 03:26 | Outpatient (CLI) | payer MEDICARE, SELFPAY ==
[2025-06-07 12:19] LABS: Abs Immature Grans 0.09 10^3/uL (0.0-0.06); HCT 36.6 % (40.0-50.0); HGB 11.7 g/dL (13.5-17.5); Immature Grans % 0.8 %; MCH 27.1 pg (27.0-33.0); MCHC 32.0 % (32.0-36.0); MCV 85 fL (80-95); MPV 8.4 fL (8.0-11.0); Platelet Count 210 10^3/uL (130-400); RBC 4.31 10^6/uL (4.36-5.78); RDW 15.1 % (11.8-14.1); RDW-SD 46.7 fL; WBC 10.74 10^3/uL (4.4-10.8)
[2025-06-07 12:46] LABS: ALT 21 U/L (16-63); AST 15 U/L (15-37); Albumin 3.3 g/dL (3.4-5.0); Alkaline Phosphatase 106 U/L (46-116); Anion Gap 7.2 mmol/L (3-11); BUN 22 mg/dL (7-18); Bilirubin, Total 0.4 mg/dL (0.2-1.0); CO2 27.8 mmol/L (21.0-32.0); Calcium 8.8 mg/dL (8.5-10.1); Chloride 103 mmol/L (98-107); Estimated GFR 55.88 (mL/min/1.73m2); Glucose 161 mg/dL (74-106); Magnesium 1.6 mg/dL (1.8-2.4); Potassium 4.8 mmol/L (3.5-5.1); Sodium 138 mmol/L (136-145); TSH 0.93 uIU/mL (0.36-3.74); Total Protein 6.8 g/dL (6.4-8.2)
== END 2025-06-07 03:27 | disposition home or self-care (01) ==
LOC: LBO 03:26
PROVIDERS: PCP Family Medicine; Visit Provider Nurse Practitioner Family
DX: Z79.899 Other long term (current) drug therapy (principal)
CPT/HCPCS: 36415; 80053; 83735; 84439; 84443; 85025

== ENCOUNTER 2025-06-28 03:05 | Outpatient (CLI) | payer MEDICARE, SELFPAY ==
[2025-06-28 13:25] LABS: Abs Immature Grans 0.05 10^3/uL (0.0-0.06); HCT 37.5 % (40.0-50.0); HGB 11.8 g/dL (13.5-17.5); Immature Grans % 0.5 %; MCH 26.4 pg (27.0-33.0); MCHC 31.5 % (32.0-36.0); MCV 84 fL (80-95); MPV 8.9 fL (8.0-11.0); Platelet Count 232 10^3/uL (130-400); RBC 4.47 10^6/uL (4.36-5.78); RDW 14.6 % (11.8-14.1); RDW-SD 44.2 fL; WBC 9.66 10^3/uL (4.4-10.8)
[2025-06-28 13:44] LABS: ALT 20 U/L (16-63); AST 16 U/L (15-37); Albumin 3.4 g/dL (3.4-5.0); Alkaline Phosphatase 117 U/L (46-116); Anion Gap 9.0 mmol/L (3-11); BUN 24 mg/dL (7-18); Bilirubin, Total 0.4 mg/dL (0.2-1.0); CO2 27.0 mmol/L (21.0-32.0); Calcium 9.2 mg/dL (8.5-10.1); Chloride 102 mmol/L (98-107); Estimated GFR 68.29 (mL/min/1.73m2); Glucose 112 mg/dL (74-106); Magnesium 1.8 mg/dL (1.8-2.4); Potassium 4.7 mmol/L (3.5-5.1); Sodium 138 mmol/L (136-145); TSH 0.89 uIU/mL (0.36-3.74); Total Protein 7.5 g/dL (6.4-8.2)
== END 2025-06-28 03:06 | disposition home or self-care (01) ==
LOC: LBO 03:05
PROVIDERS: PCP Family Medicine; Visit Provider Nurse Practitioner Family
DX: Z79.899 Other long term (current) drug therapy (principal)
CPT/HCPCS: 36415; 80053; 83735; 84439; 84443; 85025

== ENCOUNTER 2025-07-19 02:06 | Outpatient (CLI) | payer MEDICARE, SELFPAY ==
[2025-07-19 13:46] LABS: Abs Immature Grans 0.03 10^3/uL (0.0-0.06); HCT 35.4 % (40.0-50.0); HGB 11.4 g/dL (13.5-17.5); Immature Grans % 0.4 %; MCH 26.4 pg (27.0-33.0); MCHC 32.2 % (32.0-36.0); MCV 82 fL (80-95); MPV 8.8 fL (8.0-11.0); Platelet Count 195 10^3/uL (130-400); RBC 4.32 10^6/uL (4.36-5.78); RDW 14.7 % (11.8-14.1); RDW-SD 44.5 fL; WBC 7.68 10^3/uL (4.4-10.8)
[2025-07-19 14:08] LABS: Magnesium 1.6 mg/dL (1.6-2.6)
[2025-07-19 14:10] LABS: ALT 31 U/L (10-49); AST 25 U/L (<34); Albumin 3.8 g/dL (3.4-5.0); Alkaline Phosphatase 80 U/L (46-116); Anion Gap 7 mmol/L (3-11); BUN 21 mg/dL (9-23); Bilirubin, Total 0.40 mg/dL (0.2-1.2); CO2 25.0 mmol/L (20.0-31.0); Calcium 8.5 mg/dL (8.3-10.6); Chloride 103 mmol/L (98-107); Glucose 216 mg/dL (74-106); Potassium 4.3 mmol/L (3.5-5.1); Sodium 135 mmol/L (136-145); Total Protein 6.8 g/dL (5.7-8.2)
[2025-07-19 14:13] LABS: TSH 1.75 uIU/mL (0.55-4.78)
== END 2025-07-19 02:07 | disposition home or self-care (01) ==
LOC: LBO 02:06
PROVIDERS: PCP Family Medicine; Visit Provider Nurse Practitioner Family
DX: Z79.899 Other long term (current) drug therapy (principal); C34.11 Malignant neoplasm of upper lobe, right bronchus or lung
CPT/HCPCS: 36415; 80053; 83735; 84439; 84443; 85025

== ENCOUNTER 2025-07-28 03:18 | Outpatient (CLI) | payer MEDICARE, SELFPAY ==
[2025-07-28 10:12] LABS: Abs Immature Grans 0.11 10^3/uL (0.0-0.06); HCT 36.1 % (40.0-50.0); HGB 11.8 g/dL (13.5-17.5); Immature Grans % 1.3 %; MCH 26.5 pg (27.0-33.0); MCHC 32.7 % (32.0-36.0); MCV 81 fL (80-95); MPV 8.6 fL (8.0-11.0); Platelet Count 284 10^3/uL (130-400); RBC 4.46 10^6/uL (4.36-5.78); RDW 14.6 % (11.8-14.1); RDW-SD 42.7 fL; WBC 8.26 10^3/uL (4.4-10.8)
[2025-07-28 10:27] LABS: Magnesium 1.3 mg/dL (1.6-2.6)
[2025-07-28 10:29] LABS: ALT 23 U/L (10-49); AST 17 U/L (<34); Albumin 3.9 g/dL (3.2-5.0); Alkaline Phosphatase 86 U/L (46-116); Anion Gap 5 mmol/L (3-11); BUN 27 mg/dL (9-23); Bilirubin, Total 0.40 mg/dL (0.2-1.2); CO2 26.0 mmol/L (20.0-31.0); Calcium 9.0 mg/dL (8.3-10.6); Chloride 105 mmol/L (98-107); Glucose 145 mg/dL (74-106); Potassium 4.5 mmol/L (3.5-5.1); Sodium 136 mmol/L (136-145); Total Protein 6.6 g/dL (5.7-8.2)
[2025-07-28 10:32] LABS: TSH 2.11 uIU/mL (0.55-4.78)
== END 2025-07-28 03:19 | disposition home or self-care (01) ==
PROVIDERS: PCP Family Medicine; Visit Provider Nurse Practitioner Family
DX: Z79.899 Other long term (current) drug therapy (principal); C34.11 Malignant neoplasm of upper lobe, right bronchus or lung
CPT/HCPCS: 36415; 80053; 83735; 84439; 84443; 85025

== ENCOUNTER 2025-08-10 01:20 | Outpatient (CLI) | payer MEDICARE, SELFPAY ==
[2025-08-10 10:13] LABS: Abs Immature Grans 0.34 10^3/uL (0.0-0.06); HCT 37.6 % (40.0-50.0); HGB 12.0 g/dL (13.5-17.5); Immature Grans % 2.6 %; MCH 26.3 pg (27.0-33.0); MCHC 31.9 % (32.0-36.0); MCV 83 fL (80-95); MPV 8.6 fL (8.0-11.0); Platelet Count 229 10^3/uL (130-400); RBC 4.56 10^6/uL (4.36-5.78); RDW 15.8 % (11.8-14.1); RDW-SD 45.9 fL; WBC 13.27 10^3/uL (4.4-10.8)
[2025-08-10 10:28] LABS: Magnesium 1.2 mg/dL (1.6-2.6)
[2025-08-10 10:29] LABS: ALT 21 U/L (10-49); AST 18 U/L (<34); Albumin 3.6 g/dL (3.2-5.0); Alkaline Phosphatase 88 U/L (46-116); Anion Gap 7.7 mmol/L (3-11); BUN 19 mg/dL (9-23); Bilirubin, Total 0.4 mg/dL (0.2-1.2); CO2 29.3 mmol/L (20.0-31.0); Calcium 8.4 mg/dL (8.3-10.6); Chloride 104 mmol/L (98-107); Glucose 94 mg/dL (74-106); Potassium 4.2 mmol/L (3.5-5.1); Sodium 141 mmol/L (136-145); Total Protein 6.1 g/dL (5.7-8.2)
[2025-08-10 10:33] LABS: TSH 1.68 uIU/mL (0.55-4.78)
== END 2025-08-10 01:21 | disposition home or self-care (01) ==
LOC: LBO 01:20
PROVIDERS: PCP Family Medicine; Visit Provider Nurse Practitioner Family
DX: Z79.899 Other long term (current) drug therapy (principal); C34.11 Malignant neoplasm of upper lobe, right bronchus or lung
CPT/HCPCS: 36415; 80053; 83735; 84439; 84443; 85025

== ENCOUNTER 2025-08-17 01:35 | Outpatient (CLI) | payer MEDICARE, SELFPAY ==
[2025-08-17 11:46] LABS: Abs Immature Grans 0.08 10^3/uL (0.0-0.06); HCT 36.4 % (40.0-50.0); HGB 11.6 g/dL (13.5-17.5); Immature Grans % 0.7 %; MCH 26.2 pg (27.0-33.0); MCHC 31.9 % (32.0-36.0); MCV 82 fL (80-95); MPV 8.9 fL (8.0-11.0); Platelet Count 219 10^3/uL (130-400); RBC 4.43 10^6/uL (4.36-5.78); RDW 15.8 % (11.8-14.1); RDW-SD 46.5 fL; WBC 11.91 10^3/uL (4.4-10.8)
[2025-08-17 12:03] LABS: Magnesium 1.2 mg/dL (1.6-2.6)
[2025-08-17 12:07] LABS: TSH 1.63 uIU/mL (0.55-4.78)
[2025-08-17 12:13] LABS: ALT 22 U/L (10-49); AST 18 U/L (<34); Albumin 3.7 g/dL (3.2-5.0); Alkaline Phosphatase 84 U/L (46-116); Anion Gap 8.6 mmol/L (3-11); BUN 19 mg/dL (9-23); Bilirubin, Total 0.6 mg/dL (0.2-1.2); CO2 26.4 mmol/L (20.0-31.0); Calcium 8.7 mg/dL (8.3-10.6); Chloride 104 mmol/L (98-107); Glucose 151 mg/dL (74-106); Potassium 4.2 mmol/L (3.5-5.1); Sodium 139 mmol/L (136-145); Total Protein 6.1 g/dL (5.7-8.2)
== END 2025-08-17 01:36 | disposition home or self-care (01) ==
LOC: LBO 01:35
PROVIDERS: PCP Family Medicine; Visit Provider Nurse Practitioner Family
DX: Z79.899 Other long term (current) drug therapy (principal); C34.11 Malignant neoplasm of upper lobe, right bronchus or lung
CPT/HCPCS: 36415; 80053; 83735; 84439; 84443; 85025

== ENCOUNTER 2025-08-31 00:21 | Outpatient (CLI) | payer MEDICARE, SELFPAY ==
[2025-08-31 10:30] LABS: Abs Immature Grans 0.08 10^3/uL (0.0-0.06); HCT 36.4 % (40.0-50.0); HGB 11.3 g/dL (13.5-17.5); Immature Grans % 1.0 %; MCH 25.7 pg (27.0-33.0); MCHC 31.0 % (32.0-36.0); MCV 83 fL (80-95); MPV 8.5 fL (8.0-11.0); Platelet Count 251 10^3/uL (130-400); RBC 4.40 10^6/uL (4.36-5.78); RDW 16.6 % (11.8-14.1); RDW-SD 49.3 fL; WBC 8.31 10^3/uL (4.4-10.8)
[2025-08-31 10:42] LABS: ALT 16 U/L (10-49); AST 16 U/L (<34); Albumin 3.8 g/dL (3.2-5.0); Alkaline Phosphatase 97 U/L (46-116); Anion Gap 10.2 mmol/L (3-11); BUN 17 mg/dL (9-23); Bilirubin, Total 0.6 mg/dL (0.2-1.2); CO2 26.8 mmol/L (20.0-31.0); Calcium 8.3 mg/dL (8.3-10.6); Chloride 102 mmol/L (98-107); Glucose 181 mg/dL (74-106); Magnesium 1.2 mg/dL (1.6-2.6); Potassium 4.1 mmol/L (3.5-5.1); Sodium 139 mmol/L (136-145); Total Protein 6.3 g/dL (5.7-8.2)
[2025-08-31 10:45] LABS: TSH 1.26 uIU/mL (0.55-4.78)
== END 2025-08-31 00:22 | disposition home or self-care (01) ==
LOC: LBO 00:21
PROVIDERS: PCP Family Medicine; Visit Provider Nurse Practitioner Family
DX: Z79.899 Other long term (current) drug therapy (principal); C34.11 Malignant neoplasm of upper lobe, right bronchus or lung
CPT/HCPCS: 36415; 80053; 83735; 84439; 84443; 85025